=== PATIENT | male | born 1990 | race Caucasian/White ===

== ENCOUNTER 2024-04-23 10:03 | Emergency (ER) | payer MEDICAID, SELFPAY ==
[2024-04-23 10:32] VITALS: BP 145/98; PULSE 119; RESP 18; TEMP 37.2; O2SAT 97; BMI 24.7
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
== END 2024-04-23 15:15 | disposition home or self-care (01) ==
PROVIDERS: Emergency Provider Emergency Medicine
DX: S02.40CA Maxillary fracture, right side, initial encounter for closed fracture (principal); S02.85XA Fracture of orbit, unspecified, initial encounter for closed fracture; S02.40DA Maxillary fracture, left side, initial encounter for closed fracture; Y09 Assault by unspecified means
CPT/HCPCS: 70450; 70486; 99284